=== PATIENT | female | born 1950 | race American Indian/Alaskan Native ===

== ENCOUNTER 2017-01-28 18:17 | Emergency (ER) | payer SELFPAY ==
[2017-01-28 18:31] VITALS: BP 131/73; PULSE 91; RESP 18; TEMP 97.7; O2SAT 99
--- NOTE | 2017-01-28 19:48 | ED PDOC ---
HPI: CCC, URI, Sore Throat Time Seen by Provider: 01/28/17 18:32 Chief Complaint (Nursing): Cough, Cold, Congestion Chief Complaint (Provider): Cough History Per: Patient History/Exam Limitations: no limitations Have you had recent travel within the past 21 days to any of the following countries: [place], [place], [place] or [place]?: No Onset/Duration Of Symptoms: Days (3 days ago) Current Symptoms Are (Timing): Still Present Associated Symptoms: Sputum (productive of white sputum) Additional Complaint(s): 66 y/o female with no past medical, surgical, social, or family history, presents to the ED complaining of cough with associated productive white sputum , and an onset of 3 days ago. Patient reports of the cough worsening at night and has been also experiencing some runny nose, nasal congestion, chills, and body aches. She also informs the provider that she has been taking Robitussin and Mucinex without relief. She denies any chest pain, shortness of breath, leg swelling, fever, vomiting and diarrhea. She also notes that her entire household has been diagnosed with URI and that she has not recently traveled. Past Medical History Reviewed: Historical Data, Nursing Documentation, Vital Signs Vital Signs: Last Vital Signs Temp 97.7 F 01/28/17 18:28 Pulse 91 H 01/28/17 18:28 Resp 18 01/28/17 18:28 BP 131/73 01/28/17 18:28 Pulse Ox 99 01/28/17 20:37 - Medical History PMH: No Chronic Diseases - Surgical History Surgical History: No Surg Hx - Family History Family History: States: Unknown Family Hx - Living Arrangements Living Arrangements: With Family - Social History Current smoker - smoking cessation education provided: No Alcohol: None Drugs: Denies - Home Medications Home Medications: Ambulatory Orders Medication Instructions Recorded Ibuprofen [Motrin Tab] 600 mg PO Q8 PRN #30 tab 01/28/17 Oseltamivir [Tamiflu] 75 mg PO BID #10 cap 01/28/17 - Allergies Allergies/Adverse Reactions: Allergies Allergy/AdvReac Type Severity Reaction Status Date / Time No Known Allergies Allergy Verified 01/28/17 18:25 Review of Systems ROS Statement: Except As Marked, All Systems Reviewed And Found Negative (and as per HPI) Constitutional: Negative for: Fever Cardiovascular: Negative for: Chest Pain Respiratory: Negative for: Shortness of Breath Gastrointestinal: Negative for: Vomiting, Diarrhea Musculoskeletal: Negative for: Leg Pain (leg swelling) Physical Exam - Reviewed Nursing Documentation Reviewed: Yes Vital Signs Reviewed: Yes - Physical Exam Appears: Positive for: Non-toxic, In Acute Distress (tired appearing) Head Exam: Positive for: ATRAUMATIC, NORMOCEPHALIC Skin: Positive for: Warm, Dry Eye Exam: Positive for: EOMI, PERRL ENT: Negative for: Pharyngeal Erythema, Tonsillar Exudate Neck: Positive for: Painless ROM, Supple Cardiovascular/Chest: Positive for: Regular Rate, Rhythm, Chest Non Tender. Negative for: Murmur Respiratory: Negative for: Decreased Breath Sounds, Wheezing, Respiratory Distress Gastrointestinal/Abdominal: Positive for: Soft. Negative for: Tenderness Back: Positive for: Normal Inspection. Negative for: Decreased ROM Extremity: Positive for: Normal ROM. Negative for: Deformity Lymphatic: Negative for: Adenopathy Neurologic/Psych: Positive for: Alert. Negative for: Motor/Sensory Deficits - Laboratory Results Result Diagrams: 01/28/17 19:41 01/28/17 19:41 - ECG O2 Sat by Pulse Oximetry: 99 (RA) Pulse Ox Interpretation: Normal Medical Decision Making Medical Decision Making: Time: --19:12 Impression: --66 y/o female with cough and body aches Differential: --influenza, pneumonia, bronchitis, congestive heart failure, viral syndrome Plan: --B-type natriuretic --labs --Lact Acid,Plasma --Chest X-ray --Blood Culture --Iv Insertion --Influenza Reassess --Elevated lactic acid (pt declines IVF, able to tolerate PO --Flu positive --DC home. Tamiflu. f/u pmd. Scribe Attestation: Documented by Ry Pelayo acting as a scribe for Marianne Rob MD. Disposition - Clinical Impression Clinical Impression: Influenza - Disposition Disposition: Routine/Home Disposition Time: 20:00 Condition: IMPROVED Additional Instructions: DRINK PLENTY OF HYDRATING FLUIDS AND REST SEE YOUR DOCTOR IN 24-48 HOURS FOR REEVALUATION Prescriptions: Ibuprofen [Motrin Tab] 600 mg PO Q8 PRN #30 tab PRN Reason: Pain, Moderate (4-7) Oseltamivir [Tamiflu] 75 mg PO BID #10 cap Instructions: Influenza (ED)
[2017-01-28 19:53] LABS: BASO % 0.4 % (0.0-2.0); EOS # 0.1 K/uL (0.0-0.7); EOS % 1.2 % (0.0-4.0); HEMATOCRIT 41.6 % (34.0-47.0); LYMPH # 1.8 K/uL (1.0-4.3); LYMPH % 35.8 % (20.0-40.0); MEAN CELL VOLUME 79.4 fl (81.0-99.0); MEAN CORPUSCULAR HEMOGLOBIN 25.5 pg (27.0-31.0); MEAN CORPUSCULAR HGB CONC 32.1 g/dL (33.0-37.0); MEAN PLATELET VOLUME 7.6 fl (7.2-11.7); MONO # 1.1 K/uL (0.0-0.8); MONO % 20.8 % (0.0-10.0); NEUT # 2.1 K/uL (1.8-7.0); NEUT % 41.8 % (50.0-75.0); NRBC % 0.2 % (0.0-0.0); PLATELET COUNT 223 K/uL (130-400); RED CELL DISTRIBUTION WIDTH 14.5 % (11.5-14.5); WHITE BLOOD COUNT 5.1 K/uL (4.8-10.8)
[2017-01-28 20:06] LABS: ALB/GLOB RATIO 1.1 (1.0-2.1); ALKALINE PHOSPHATASE 88 U/L (38-126); ALT/SGPT 30 U/L (9-52); AST/SGOT 28 U/L (14-36); BILIRUBIN,TOTAL 0.4 mg/dl (0.2-1.3); BLOOD UREA NITROGEN 13 mg/dl (7-17); CARBON DIOXIDE 27 mmol/L (22-30); CHLORIDE 102 mmol/L (98-107); GFR AFRICAN-AMERICAN > 60; GLUCOSE,RANDOM 105 mg/dL (65-105); SODIUM 140 mmol/l (132-148); TOTAL PROTEIN 8.2 G/DL (6.3-8.2)
[2017-01-28] MEDS ORDERED: Sodium Chloride 0.9% 500 ML IV STA (20:10)
[2017-01-28 20:19] LABS: EOSINOPHIL 2 % (0-7); NEUTROPHIL 46 % (42-75); TOTAL CELLS COUNTED 100
--- NOTE | 2017-01-29 13:15 | RAD ---
HISTORY: cough r/o pneumonia COMPARISON: No prior. TECHNIQUE: Chest PA and lateral FINDINGS: LUNGS: No active pulmonary disease. PLEURA: No significant pleural effusion identified. No pneumothorax apparent. CARDIOVASCULAR: Normal. OSSEOUS STRUCTURES: No significant abnormalities. VISUALIZED UPPER ABDOMEN: Normal. OTHER FINDINGS: None. IMPRESSION: No active disease. Concordant results with the preliminary interpretation rendered by the emergency department physician procedure.
== END 2017-01-28 21:02 | disposition home or self-care (01) ==
LOC: H.ER 18:17
DX: J11.1 Influenza due to unidentified influenza virus with other respiratory manifestations (principal)
CPT/HCPCS: 71020; 80053; 83605; 83880; 85025; 87040; 87804; 96360; 99282; J1885